=== PATIENT | female | born 1960 | race Two or more races ===

== ENCOUNTER 2025-01-01 00:26 | Inpatient (IN) | payer MEDICARE, MEDICAID ==
[~2025-01-01] VITALS: Ht 157.5 cm; Wt 71.6 kg
[2025-01-01] VITALS (7 sets, daily range): BP systolic 93–116; BP diastolic 52–64; PULSE 88–101; RESP 16–20; TEMP 97–97.8; O2SAT 95–98
[2025-01-01 01:03] LABS: CREATININE 1.25 MG/DL (0.40-0.90); TOTAL CARBON DIOXIDE 28.1 MMOL/L (24-32); eCRCL 37 ML/MIN; eGFR 43 ML/MIN
[2025-01-01] MEDS: ondansetron/PF 4mg/2ml inj IV ONE (01:17)
[2025-01-01] MEDS: fentaNYL/PF 50MCG/1 ML 2ML syringe IV ONE (01:21)
[2025-01-01] MEDS: ketorolac trometh 15mg/ml vial 15 MG/ML ML IV ONE (01:21)
--- NOTE | 2025-01-01 02:28 | Physician Documentation ---
History of Present Illness ~ Chief Complaint: Abdominal Pain Stated Complaint: POSS KIDNEY STONES Time Seen by MD: 02:27 Mode of Arrival: EMS HPI Patient presents to the emergency room with two day history of left flank pain. No prior instances. She does endorse dysuria. Positive fevers. Medication Reconciliation Allergies: Coded Allergies: morphine (Verified Allergy, Severe, 01/01/25) Uncoded Allergies: BUMBLE BEES (Allergy, Severe, 01/01/25) SULFA (Allergy, Unknown, 01/01/25) Review of Systems ROS All review of systems negative except as per HPI Physical Exam Vital Signs: Temperature: 98.5, Source: Oral, Heart Rate: 110, Respiratory Rate: 18, BP: 177/100, Pulse Oximetry: 96, Weight: 63.630 Physical Exam General: Patient is awake, alert, oriented x4 in moderate distress Head: Normocephalic and atraumatic. Eyes: Conjunctival normal. EOMI. PERRL. ENT: Mucous membranes moist. Neck: Supple, trachea is midline. Chest: Clear to auscultation bilaterally without rales, rhonchi, or wheezes. There is no accessory muscle use or retractions. Cardiac: Tachycardic irregular without murmurs, gallops, or rubs. Abd: Soft, nondistended, nontender, with normoactive bowel sounds. No guarding, rebound, or rigidity. Back: Left-sided CVA tenderness Progress Progress Note Of noticed small sac of what appears to be drugs fell out of patient's pocket, confiscated by nurse. Results/Orders Results/Orders Orders - VICENTE THAKKAR MD Straight Cath For Urine Sample (01/01/25 00:36) Ct Abdomen Pelvis (01/01/25 02:30) Culture Blood (01/01/25 02:31) Lacticsepsis (01/01/25 02:31) Diltiazem-Ns 100mg/100ml (Cardizem-Ns 10 (01/01/25 03:25) Cult Urine + [facility] Ct (01/01/25 03:50) Page Hospitalist (01/01/25 03:54) Fill Out Med Reconciliation (01/01/25 03:54) Completed Orders - VICENTE THAKKAR MD Hcg, Ur Ql (01/01/25 00:36) BMP (01/01/25 00:36) Lipase (01/01/25 00:36) CMP (01/01/25 00:36) Ketorolac Trometh 15mg/Ml Vial (Toradol (01/01/25 01:05) Ondansetron Inj. (Zofran 4mg/2ml Vial) (01/01/25 01:05) Fentanyl/Pf (Fentanyl 0.05 Mg/Ml Syringe (01/01/25 01:05) Ceftriaxone 2gm/D5w 50ml Bag (Rocephin 2 (01/01/25 02:25) Acetaminophen 1,000mg/100ml Iv (Ofirmev (01/01/25 02:25) Stat Ekg (01/01/25 ) Ct Abdomen Pelvis (01/01/25 02:30) Procalcitonin (01/01/25 02:31) Normal Saline 1000ml (0.9% Sodium Chlori (01/01/25 03:20) Diltiazem Iv (Cardizem Iv 5mg/Ml Inj.) (01/01/25 03:20) Ua W/Microscopic, Cult If Ind (01/01/25 02:13) Medications Received in ER Medications (Trade) Dose Ordered Sig/Kd Route PRN Reason Start Time Stop Time Status Last Admin Dose Admin (Toradol injection) 15 mg ONCE ONCE IV 01/01/25 01:05 01/01/25 01:06 DC 01/01/25 01:21 15 MG (Zofran 4mg/2ml vial) 4 mg ONCE ONCE IV 01/01/25 01:05 01/01/25 01:06 DC 01/01/25 01:17 4 MG (fentaNYL 0.05 MG/ML syringe) 50 mcg ONCE ONCE IV 01/01/25 01:05 01/01/25 01:06 DC 01/01/25 01:21 50 MCG Ceftriaxone Sodium/Dextrose 50 ml @ 100 mls/hr ONCE ONCE IV 01/01/25 02:25 01/01/25 02:54 DC 01/01/25 02:43 100 MLS/HR Acetaminophen 100 ml @ 400 mls/hr ONCE ONCE IV 01/01/25 02:25 01/01/25 02:39 DC 01/01/25 02:40 400 MLS/HR (0.9% sodium chloride (NS) 1000ml IV soln) 2,000 ml ONCE ONCE IVB 01/01/25 03:20 01/01/25 03:21 DC 01/01/25 03:24 2,000 ML (Cardizem IV 5mg/ ml inj.) 5 mg ONCE ONCE IV 01/01/25 03:20 01/01/25 03:21 DC 01/01/25 03:29 5 MG Diltiazem HCl 100 ml @ 5 mls/hr Q20H IV 01/01/25 03:25 01/01/25 03:29 5 MLS/HR Vital Signs 01/01/25 01/01/25 01/01/25 01/01/25 00:28 01:21 01:21 01:24 Temp 98.5 Pulse 108 Resp 24 21 20 18 B/P (MAP) 146/118 Pulse Ox 97 01/01/25 01/01/25 01/01/25 01/01/25 01:30 02:38 03:29 03:29 Temp 98.5 103.3 Pulse 110 143 134 134 Resp 18 20 B/P (MAP) 177/100 (125) 160/115 (130) 119/68 119/68 Pulse Ox 96 97 O2 Flow Rate 0 Laboratory Tests Test 01/01/25 00:32 01/01/25 01:25 01/01/25 01:58 01/01/25 02:13 CBC Comment Sodium Level 137 Potassium Level 4.0 Chloride Level 103 Carbon Dioxide Level 28.1 Anion Gap 6 L Blood Urea Nitrogen 19 H Creatinine 1.25 H Estimated GFR/1.73 m2 43 BUN/Creatinine Ratio 15.2 Glucose Level 128 H Calcium Level 9.5 Total Bilirubin 0.7 Aspartate Amino Transf (AST/SGOT) 29 Alanine Aminotransferase (ALT/SGPT) 33 Alkaline Phosphatase 96 Total Protein 8.7 H Albumin 3.5 Globulin 5.2 H Albumin/Globulin Ratio 0.7 L Lipase 19 Procalcitonin < 0.05 Chemistry Comments White Blood Count 11.7 H Red Blood Count 4.96 Hemoglobin 14.2 Hematocrit 42.3 Mean Corpuscular Volume 85.2 Mean Corpuscular Hemoglobin 28.7 Mean Corpuscular Hemoglobin Concent 33.7 Red Cell Distribution Width 14.3 Platelet Count 148 Mean Platelet Volume 7.5 Neutrophils (%) (Auto) 86.1 H Lymphocytes (%) (Auto) 9.0 L Monocytes (%) (Auto) 3.4 Eosinophils (%) (Auto) 0.6 Basophils (%) (Auto) 0.9 Neutrophils # (Auto) 10.1 H Lymphocytes # (Auto) 1.1 Monocytes # (Auto) 0.4 Eosinophils # (Auto) 0.1 Basophils # (Auto) 0.1 Urine Specimen Description Cln catch midstream Urine Color Yellow Urine Clarity Cloudy Urine pH 6.0 Urine Specific [place] 1.025 Urine Protein 30 H Urine Glucose (UA) Negative Urine Ketones 15 H Urine Occult Blood Small Urine Nitrite Positive H Urine Bilirubin Negative Urine Urobilinogen 0.2 Urine Leukocyte Esterase Small H Urine RBC None seen Urine WBC Tntc H Urine WBC Clumps Many Urine Squamous Epithelial Cells None seen Urine Bacteria 4+ Urine Culture Indicated Indicated Volume Urine Centrifuged 10 ml Urine HCG, Qualitative Negative Urine Comment EKG/XRAY/CT/US/VASC/MRI EKG : Additional Comment EKG interpreted by myself shows time of 0226, rate 140, atrial fibrillation with rapid ventricular response, normal axis, no ST changes Chest X-Ray : Additional Comments Exam: CT ABDOMEN PELVIS Exam: CT CT ABDOMEN PELVIS History: Concern for kidney stone Comparison Study: None Technique: Multidetector spiral CT of the abdomen was performed from lung bases to pubic symphysis. Imaging was performed without IV contrast. Axial, coronal and sagittal multiplanar reformats were obtained from the axial data set by the technologist. Radiation Dose : 1. Abdomen/Pelvis: CTDIvol 18.33 mGy, DLP 984.98 mGy*cm. Findings: Evaluation of solid organs is limited due to lack of intravenous contrast use. Lung Bases: No acute or significant lung base finding. Moderate bibasilar atelectasis. Normal heart size. No pleural or pericardial effusion. Liver: The liver is normal in size. No focal lesions. Gallbladder and Biliary Tree: Unremarkable Spleen: Unremarkable Pancreas: The pancreas is grossly normal in appearance. Adrenal Glands: Unremarkable Kidneys: Severe left hydroureteronephrosis and perinephric inflammatory change without an identifiable obstructing ureterolith. Nonobstructing left interpolar pelvocaliceal calculus measures 12 mm. No evidence of right nephrolithiasis or hydronephrosis. Bladder: Grossly unremarkable for degree of distention. Bowel: The stomach is grossly normal in appearance. Small bowel and colon are normal in caliber and distribution. The appendix is normal. Ascites: Absent Lymphadenopathy: No mesenteric, retroperitoneal or periportal lymphadenopathy. Abdominal Wall and Mesentery: Unremarkable. Vasculature: The visualized abdominal aorta is normal in size and caliber. Atherosclerotic vascular calcifications. Evaluation of abdominal and pelvic vessels is limited due to lack of intravenous contrast. Pelvic Organs: Unremarkable Musculoskeletal: No aggressive focal bony lesions, acute fractures or dislocation. IMPRESSION: 1. Severe left hydroureteronephrosis and perinephric inflammatory change without an identifiable obstructing ureterolith. This may represent a recently passed calculus. 2. Nonobstructing left interpolar pelvocaliceal calculus measures 12 mm. Radiation optimization: All CT scans at this facility use at least one of these dose optimization techniques: automated exposure control mA and/or kV adjustment per patient size (includes targeted exams where dose is matched to clinical indication) or iterative reconstruction. Medical Decision Making Findings Patient presents to the emergency room with flank pain dysuria F fevers and tachycardia. Differentials include but are not limited to sepsis, pyelonephritis, infected kidney stone, urinary tract infection, aortic pathology therefore emergent labs and imaging indicated. Labs significant for elevated white blood cell count as well as urinary tract infection. Given tachycardia along with fevers she is septic. 30 milliliters/kilogram of IV fluids has been initiated as well as IV antibiotics. She will require admission. Blood pressures are reassuring. Patient also found to be in new onset atrial fibrillation. Diltiazem drip initiated. He denies any chest pain. Diff Dx GI Bleed:Consideration: Include: Bleeding diathesis Diff Dx Pain:Considerations: Include: -Threatened Diff Dx N/V/D:Considerations: Include: DKA Diff Dx Rectal:Considerations: Include: Foreign body Departure Admitted to Inpatient Unit: yes, to hospitalist Impression: Primary Impression: Acute urinary tract infection Additional Impressions: Pyelonephritis Sepsis Referrals: NO PRIMARY CARE PROVIDER (PCP) Signature Scribe Signature: No scribe Attestation: The note accurately reflects work and decisions made by me.Vicente Thakkar MD 01/01/25 04:00 VICENTE THAKKAR MD Jan 01, 2025 02:28
--- NOTE | 2025-01-01 02:29 | ELECTROCARDIOGRAPH REPORT ---
[facility] Test Date: 2025-01-01 Test Time: 02:26:24 Pat Name: NAIMA RODRIGUEZ Department: [facility]-ER Patient ID: [id number] Room: [place] [id number] Gender: F Psychology Assistant: : [id number] Requested By: CELINA SLADE Order Number: [id number] Reading MD: Dr. Timothy Bender Measurements Intervals [place] Rate: 140 P: 0 MD: 0 QRS: 63 QRSD: 101 T: 53 QT: 310 QTc: 473 Interpretive Statements Atrial flutter/fibrillation Low voltage, precordial leads Anteroseptal infarct, old Artifact in lead(s) I,II,III,aVR,aVL,aVF,V1,V2 Electronically Signed On 01-01-2025 7:40:[address] Timothy Bender Please click the below link to view image of tracing.
[2025-01-01] MEDS: acetaminophen 1,000mg/100ml IV 100 ML IV ONE (02:40)
[2025-01-01] MEDS: CefTRIAXone 2gm/D5W 50ml BAG 50 ML IV ONE (02:43)
[2025-01-01 02:51] LABS: URINE HCG NEGATIVE (NEG)
[2025-01-01] MEDS: normal saline 1000ML IV soln IVB ONE (03:24)
[2025-01-01] MEDS: diltiazem 5mg/ml 5ml inj. IV ONE (03:29)
[2025-01-01] MEDS: diltiazem-NS 100mg/100ml 100 ML IV SCH (03:29)
[2025-01-01 03:31] LABS: RED CELL DISTRIBUTION WIDTH 14.3 % (11.5-14.5)
[2025-01-01 03:33] LABS: MEAN PLATELET VOLUME 7.5 FL (7.4-10.4)
--- NOTE | 2025-01-01 03:41 | RADIOLOGY REPORT ---
Exam: CT CT ABDOMEN PELVIS History: Concern for kidney stone Comparison Study: None Technique: Multidetector spiral CT of the abdomen was performed from lung bases to pubic symphysis. Imaging was performed without IV contrast. Axial, coronal and sagittal multiplanar reformats were obtained from the axial data set by the technologist. Radiation Dose : 1. Abdomen/Pelvis: CTDIvol 18.33 mGy, DLP 984.98 mGy*cm. Findings: Evaluation of solid organs is limited due to lack of intravenous contrast use. Lung Bases: No acute or significant lung base finding. Moderate bibasilar atelectasis. Normal heart size. No pleural or pericardial effusion. Liver: The liver is normal in size. No focal lesions. Gallbladder and Biliary Tree: Unremarkable Spleen: Unremarkable Pancreas: The pancreas is grossly normal in appearance. Adrenal Glands: Unremarkable Kidneys: Severe left hydroureteronephrosis and perinephric inflammatory change without an identifiable obstructing ureterolith. Nonobstructing left interpolar pelvocaliceal calculus measures 12 mm. No evidence of right nephrolithiasis or hydronephrosis. Bladder: Grossly unremarkable for degree of distention. Bowel: The stomach is grossly normal in appearance. Small bowel and colon are normal in caliber and distribution. The appendix is normal. Ascites: Absent Lymphadenopathy: No mesenteric, retroperitoneal or periportal lymphadenopathy. Abdominal Wall and Mesentery: Unremarkable. Vasculature: The visualized abdominal aorta is normal in size and caliber. Atherosclerotic vascular calcifications. Evaluation of abdominal and pelvic vessels is limited due to lack of intravenous contrast. Pelvic Organs: Unremarkable Musculoskeletal: No aggressive focal bony lesions, acute fractures or dislocation. IMPRESSION: 1. Severe left hydroureteronephrosis and perinephric inflammatory change without an identifiable obstructing ureterolith. This may represent a recently passed calculus. 2. Nonobstructing left interpolar pelvocaliceal calculus measures 12 mm. Radiation optimization: All CT scans at this facility use at least one of these dose optimization techniques: automated exposure control mA and/or kV adjustment per patient size (includes targeted exams where dose is matched to clinical indication) or iterative reconstruction.
[2025-01-01 03:42] LABS: LEUKOCYTE ESTERASE ,URINE SMALL (Neg); NITRITES, URINE POSITIVE (Neg); OCCULT BLOOD,URINE SMALL (Neg)
[2025-01-01 03:43] LABS: UA COLLECTION TYPE CLN CATCH MIDSTREAM
[2025-01-01 03:50] LABS: SQUAMOUS EPITHELIAL CELL,UR NONE SEEN /LPF (FEW); WBC CLUMPS,URINE MANY /HPF (NEGATIVE)
[2025-01-01] MEDS ORDERED: magnesium Cl slow-release 64mg tablet PO PRN (04:10)
[2025-01-01] MEDS ORDERED: potassium Cl 20 mEq SR tablet PO PRN (04:10)
[2025-01-01] MEDS: PERFLUTREN PROTEIN-A MICROSPHR (Optison) 0.22 MG/ML 3ML VIAL IV ONE (04:10)
[2025-01-01] MEDS ORDERED: potassium Cl 40MEQ/1/2NS 520ml 520 ML IV PRN (04:10)
[2025-01-01] MEDS ORDERED: ondansetron/PF 4mg/2ml inj IV PRN (04:10)
[2025-01-01] MEDS ORDERED: magnesium sulf-water 4G/100mL 100 ML IV PRN (04:10)
[2025-01-01] MEDS ORDERED: magnesium sulf-water 2g/50mL 50 ML IV PRN (04:10)
--- NOTE | 2025-01-01 04:53 | HISTORY AND PHYSICAL-Residence ---
History & Physical Providers to CC Resident Creating Document: FARTUN TAN RES CC: ALEX WOLF MD ~ History of Present Illness Primary Medical Doctor: in [place], [place] Reason for Admit\Complaint: Left lower quadrant abdominal pain for a week History of Present Illness 64 year old female past medical history of nephrolithiasis, lupus, presented to the ER with chief complaints of left flank pain the has been ongoing for the past one week. Patient was initially prescribed Keflex for possible UTI and even with that she was having severe left flank pain associated with dysuria, hematuria pyuria. She is also having urinary incontinence. Pain is associated with nausea and vomitings. She does have intermittent low-grade fevers. Denies any recent urological intervention of previous urological intervention. Of note as per the sign-out received from the ER the, a purse with some pills were confiscated from the patient Allergies: Coded Allergies: morphine (Verified Allergy, Severe, 01/01/25) Uncoded Allergies: BUMBLE BEES (Allergy, Severe, 01/01/25) SULFA (Allergy, Unknown, 01/01/25) Past Medical History Past Medical History History of nephrolithiasis Lupus diagnosed many years ago, not on any treatment, uses steroids for any breakout Heart murmur Uses Ventolin for shortness of breaths Uterine prolapse Past Surgical History Surgical History Comment Cataract surgery Past Social History Social History Comment Ex-smoker, quitted seven months ago before that five pack year history of smoking Denies alcohol use Denies illicit drug use Denies marijuana use Independent for ADLs lives in [place] ROS ROS ROS Constitutional: Positive for fever, no dizziness, weakness. decreased appetite HEENT: No blurring of the vision, No sore throat, epistaxis, tinnitus Cardiovascular: No chest pain/discomfort, palpitations, syncope. No pedal edema Respiratory: No sob, cough,, hemoptysis Gastrointestinal: Positive for abdominal pain, nausea, vomiting. No diarrhea, constipation, melena. Genitourinary: Positive for urinary incontinence, hematuria, dysuria, flank pain Musculoskeletal: No arthralgia, myalgia Endocrine: No, polydipsia, polyuria. No heat or cold intolerance Neurologic: No headache, vertigo. No weakness, numbness or tingling of extremities Psychiatric: No hallucinations/delusions, no anhedonia, no suicidal ideation\ Hematologic: No bleeding or bruises Reviewed in full. All negative except for pertinent positives in HPI Exam Vitals: Vital Signs Date Time Temp Pulse Resp B/P (MAP) Pulse Ox O2 Delivery O2 Flow Rate FiO2 01/01/25 04:00 100.2 121 35 98 01/01/25 03:29 119/68 01/01/25 02:38 0 General: General: Pleasant elderly female, edentulous, AAO x4, not in apparent distress but appears very fidgety Head: Normocephalic with an atraumatic Eyes: Pupils- 3mm, reacting to light, conjunctiva- anicteric Nose and throat: No polyps, septum- normal, no mucosal ulcers Neck: Supple, no lymphadenopathy, no carotid bruit Respiratory: No use of accessory muscles of respiration, bilateral decreased breath sounds with occasional wheeze present Cardiac: S1-S2 heard, rythm regular, ESM in the aortic area and PSM in the mitral area with radiation over precordium Abdomen: Mildly distended, tenderness over the left flank, no organomegaly, bowel sounds- heard Extremities: no clubbing, no pedal edema, no deformities, peripheral pulses- 2+, with a right morocho 2-3 mm subcutaneous nodules which are mildly tender present Skin: warm and dry, no rash, no purpura Neuro: No focal deficit, gross cranial nerve exam- normal Gynecologic examination deferred Diagnostic Data Last Recorded Lab Results: 01/01/25 0158 01/01/25 0032 Advance Care Planning Advanced Care plannin - 30 Minutes (Code status is discussed with cam she opted for full code) Additional Plan 64 year old female past medical history of nephrolithiasis, lupus, presented to the ER with chief complaints of left flank pain the has been ongoing for the past one week. ER course- in the ER initial EKG was sinus however later patient developed AFib with RVR received Cardizem 5 mg IV push and started on Cardizem at 5 mg/hour. She is found to be septic with a possible source UTI. Urinalysis- positive for nitrite and leukocyte esterase with many WBC and bacteria. Pending urine cultures. She was empirically started on IV Rocephin. CT abdomen and pelvis showed severe left hydroureteronephrosis and perinephric inflammatory change without an identifiable obstructing nephrolith possibly representing recently passed calculus. Nonobstructing left pelvicaliceal calculus measuring 12 mm CBC-WBC 11.7, mild leukocytosis with neutrophilic shift with normal procalcitonin Sepsis Suspect secondary to left pyelonephritis -received 2 L normal saline bolus in the ER -current blood pressures in the range of 90-60 with map 63 -give another fluid bolus of 1 L normal saline -continue normal saline at 100 cc/hour. Monitor blood pressure to maintain map above 65 -follow up on urine cultures, blood cultures -empirically started on IV meropenem 1 gm q12, as patient stated she had some resistant uti in the past Left hydroureteronephrosis Left Nephrolithiasis -CT suggesting stone might have been past. -We will consult Urology regarding recommendations for stenting as patient is also having sepsis and pyelonephritis -keep patient NPO until urology consultation is done. Dr. Block consulted, appreciate recs RUBEN -baseline creatinine unknown -Current creatinine 1.25 -likely suspect RUBEN secondary to sepsis -continue normal saline at 100 cc/hour -follow up on urine lytes and monitor input output chart New onset AFib with RVR Chads Vasc-1 -continue Cardizem at 5 mg/hour current heart rates and dose to 110s, if blood pressure is going down reduced Cardizem dose to 2.5 mg/hour -follow up on echocardiogram to look for any valvular lesions like mitral stenosis -follow up on TSH -if there is no mitral stenosis on-chads Vasc score is one patient might not need anticoagulation Lupus -stated long-term history of lupus currently not on any medications at present there is no active flare of lupus clinically however urinalysis did show some proteinuria. We will do urine protein creatinine ratio, and monitor Heart murmur -follow up on 2D echo to look for possible MR/ Uterine prolapse -currently reducible at this time, consult Gynecology if needed Methamphetamine abuse -UDS is positive for meth and fentanyl. patient did have a dose of fentanyl for pain relief here in the ER and UDS was obtained after that -substance abuse navigator and clinical social worker consulted for meth abuse Code Status: Full code Line/tube: PIV DVT prophylaxis: Lovenox Nutrition: NPO PT: Yes Prognosis: Guarded Disposition: Continue care in PCU, pending urology consult Fartun Tan MD PGY-3 resident Plan reviewedPlan reviewed with bedside team. Patient seen through remote audiovisual assessment through HIPAA compliant setup. All labs, flowsheets, and images reviewed Cumulative nonprocedural care time spent in directed patient care = 30 min with bedside team. Patient seen through remote audiovisual assessment through HIPAA compliant setup. All labs, flowsheets, and images reviewed Cumulative nonprocedural care time spent in directed patient care = 60 min Date of Service: Jan 01, 2025 Billing Provider: ALEX WOLF MD, HARIVARSHA, [facility] Jan 01, 2025 04:53 ALEX WOLF MD Jan 01, 2025 07:18
[2025-01-01 05:00] LABS: URINE AMPHETAMINE SCREEN POSITIVE (Neg); URINE BARBITUATE SCREEN NEGATIVE (Neg); URINE BENZODIAZEPINES SCREEN NEGATIVE (Neg); URINE CANNABINOID SCREEN NEGATIVE (Neg); URINE COCAINE SCREEN NEGATIVE (Neg); URINE METHADONE SCREEN NEGATIVE (Neg); URINE OPIATE SCREEN NEGATIVE (Neg); URINE PHENCYCLIDINE SCREEN NEGATIVE (Neg)
[2025-01-01] MEDS: normal saline 1000ml 1,000 ML IV ONE (05:35)
[2025-01-01] MEDS: K and/or MAG REPLACEMENT MC SCH (08:00)
--- NOTE | 2025-01-01 09:02 | RADIOLOGY REPORT ---
CHEST RADIOGRAPH Indication: FEVER Technique: Single frontal view of the chest was obtained Comparison: None FINDINGS: Lines and Tubes: None Lungs: No focal consolidation. Pleura: No effusion. No pneumothorax. Cardiomediastinal contours: Unremarkable Bones: No acute osseous abnormality. IMPRESSION: No acute cardiopulmonary disease.
[2025-01-01] MEDS: normal saline 1000ml 1,000 ML IV SCH (09:14)
[2025-01-01] MEDS: MEROPENEM 1GM/NACL 50ML IVPB 50 ML IV SCH (09:17)
[2025-01-01] MEDS: docusate sod 100mg capsule PO SCH (09:17)
[2025-01-01] MEDS: enoxaparin 40mg/0.4ml syringe SUBCUT SCH (09:18)
[2025-01-01] MEDS: phenazopyridine 100mg tablet PO SCH (14:27)
--- NOTE | 2025-01-01 16:42 | CARDIOLOGY REPORT ---
APPROVED REPORT EXAM: Comprehensive 2D, Doppler, and color-flow Echocardiogram. 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 3.16 cm IVC 16.05 mm FS (%) 38.1 % SV 37.2 ml CO 3.3 L/min M-Mode Dimensions Left Atrium(MM) 3.16 (2.5-4.0cm) Aortic Root 2.95 (2.2-3.7cm) Aortic Cusp Exc 1.54 (1.5-2.0cm) MV EPSS 0.5 (<0.5cm) Aortic Valve AoV Peak Trey. 145.8 cm/s AoV VTI 27.2 cm AO Peak GR. 8.5 mmHg AO Mean GR. 5 mmHg LVOT VTI 19.52 cm LVOT Peak Trey. 102.7 cm/s LOPEZ(VTI)/BSA 2.25 cm2/m2 LOPEZ (VTI) 2.25 cm2 AV DI 0.72 % Mitral Valve MV E Velocity 87.8 cm/s MV Peak Gr. 9 mmHg MV DECEL TIME 196 ms MV A Velocity 112.5 cm/s MV PHT 44 ms E/A Ratio 0.8 MVA (PHT) 5.00 cm2 MV VMax 150.6 cm/s TDI Lateral E' P. V 13.66 cm/s E/Lateral E' 6.4 Pulmonary Valve PAEDP 12.38 mmHg Tricuspid Valve TR P. Velocity 241 cm/s RAP ESTIMATE 10 mmHg TR Peak Gr. 23 mmHg RVSP 33 mmHg LEFT VENTRICLE Normal LV size and wall thickness. Overall systolic function is normal. Intra- cavitary gradient is present with resting velocity of 14 mmHg increasing to 21 mmHg with valsalva. Overall LVEF is 70-75%. RIGHT VENTRICLE RV is normal size and function. Estimated PA systolic pressure of 33 mm of mercury. ATRIA The left atrium size is normal. AORTIC VALVE Trileaflet AV appears mildly sclerotic without stenosis. No insufficiency. MITRAL VALVE Mitral valve leaflets are mildly thickened with mild annular calcification. No stenosis. Trace regurgitation. TRICUSPID VALVE The tricuspid valve is normal in structure with mild regurgitation. PULMONIC VALVE The pulmonary valve is normal in structure with trace insufficiency. GREAT VESSELS The aortic root is normal in size. The ascending aorta is normal in size. The IVC is normal in size and collapses >50% with inspiration. PERICARDIUM Normal pericardium. No effusion. Other Information Study Quality: Adequate Conclusion Overall LVEF is 70-75%. Normal LV size and wall thickness. Overall systolic function is normal. Intra-cavitary gradient is present with resting velocity of 14 mmHg increasing to 21 mmHg with valsalva. RV is normal size and function. Estimated PA systolic pressure of 33 mm of mercury. Trileaflet AV appears mildly sclerotic without stenosis. No insufficiency. Mitral valve leaflets are mildly thickened with mild annular calcification. No stenosis. Trace regurgitation. The tricuspid valve is normal in structure with mild regurgitation. The pulmonary valve is normal in structure with trace insufficiency. Normal pericardium. No effusion.
--- NOTE | 2025-01-01 20:30 | PROGRESS NOTE ---
Daily Progress Note Providers to CC ~ Antibiotic Timeout Antibiotic Ordered?: Yes Subjective The patient has a little bit of an odd affect I did inform the patient about the CT findings and the fact that is I did speak to the urologist Dr. Block. Objective Vital Signs Date Time Temp Pulse Resp B/P (MAP) Pulse Ox O2 Delivery O2 Flow Rate FiO2 01/01/25 15:00 97.0 88 18 93/61 (72) 98 Room Air 01/01/25 11:00 2.0 Result Diagram: 01/01/25 0158 01/01/25 0032 Gen. No acute distress alert and oriented 4 Lungs clear to ascultation bilaterally, no wheezes rales or rhonchi appreciated Heart irregular rhythm no murmurs rubs or clicks noted Abdomen soft nontender bowel sounds are normoactive Lower extremities no clubbing cyanosis, nor edema appreciated bilaterally Problem\Assessment\Plan Problems/Diagnosis: (1) Sepsis # sepsis # pyelonephritis # bladder pain possible spasms Pyridium IV Rocephin Urine culture/ blood cultures obtained #Left hydroureteronephrosis Left Nephrolithiasis -CT suggesting stone might have been past. -spoke with urologist Dr. Block who will evaluate the patient #Kidney injury possibly acute -baseline creatinine unknown -Current creatinine 1.25 -likely suspect RUBEN secondary to sepsis -continue normal saline at 100 cc/hour -follow up on urine lytes and monitor input output chart #New onset AFib with RVR Chads Vasc-1 -continue Cardizem at 5 mg/hour current heart rates and dose to 110s, if blood pressure is going down reduced Cardizem dose to 2.5 mg/hour -follow up on echocardiogram to look for any valvular lesions like mitral stenosis -follow up on TSH -if there is no mitral stenosis on-chads Vasc score is one patient might not need anticoagulation #Lupus -stated long-term history of lupus currently not on any medications at present there is no active flare of lupus clinically however urinalysis did show some proteinuria. We will do urine protein creatinine ratio, and monitor #Uterine prolapse -currently reducible at this time, consult Gynecology if needed #Methamphetamine abuse -UDS is positive for meth and fentanyl. patient did have a dose of fentanyl for pain relief here in the ER and UDS was obtained after that -substance abuse navigator and social sciences professor consulted for meth abuse Code Status: Full code Line/tube: PIV DVT prophylaxis: Lovenox Nutrition: NPO PT: Yes Prognosis: Guarded Disposition: Continue care in PCU, pending urology consult Date of Service: Jan 01, 2025 Billing Provider: KINSEY MOYA DO Common Visit Codes: NOT BILLABLE (After midnight to be billed by roof shingler) KINSEY MOYA DO Jan 01, 2025 20:30
[2025-01-01] MEDS ORDERED: CefTRIAXone 2gm/D5W 50ml BAG 50 ML IV SCH (21:00)
[2025-01-01] MEDS: diltiazem 30mg tablet PO ONE (22:37)
[2025-01-02] VITALS (7 sets, daily range): BP systolic 90–110; BP diastolic 46–57; PULSE 76–82; RESP 13–18; TEMP 97.1–97.8; O2SAT 92–97
[2025-01-02 06:26] LABS: MEAN PLATELET VOLUME 8.4 FL (7.4-10.4); RED CELL DISTRIBUTION WIDTH 14.8 % (11.5-14.5)
[2025-01-02 06:42] LABS: CREATININE 0.79 MG/DL (0.40-0.90); TOTAL CARBON DIOXIDE 21.7 MMOL/L (24-32); eCRCL 58 ML/MIN; eGFR 74 ML/MIN
[2025-01-02 07:09] LABS: BANDS% (MANUAL) 12.0 % (0-10); LYMPHOCYTES % (MANUAL) 6.0 % (21-51); MONOCYTES % (MANUAL) 2.0 % (2-12); NEUTROPHILS % (MANUAL) 80.0 % (42-75); PLATELET ESTIMATE NORMAL
[2025-01-02] MEDS: diltiazem CD 180mg cap (once-daily) PO SCH (08:06)
[2025-01-02] MEDS: CefTRIAXone 2gm/D5W 50ml BAG 50 ML IV SCH (08:06)
[2025-01-02] MEDS: HYDROcodone/acetaminophen 5mg/325mg tablet PO PRN (08:09)
--- NOTE | 2025-01-02 18:28 | CONSULTATION ---
DATE OF CONSULTATION: 01/01/2025 DICTATING PHYSICIAN: Luke Block MD HISTORY OF PRESENT ILLNESS: A 64-year-old female presented herself to the Emergency Room with flank pain. She has a history of nephrolithiasis treated by her doctor up in [place]. She presented with left flank pain ongoing for the last week. She was given Keflex for possible UTI, but came in when she started having more pain and dysuria. She has not passed a recent stone that she knows of. She has some nausea and vomiting with low-grade fever. I was asked to consult. PAST SURGICAL HISTORY: Cataract and nephrolithiasis, kidney stone surgery of unclear type. PAST MEDICAL HISTORY: Nephrolithiasis, lupus, cardiac murmur, uterine prolapse, Ventolin for shortness of breath. ALLERGIES: PATIENT IS ALLERGIC TO MORPHINE. HOME MEDICATIONS: None listed. SOCIAL HISTORY: She is an ex-smoker, quit 7 months ago. She denies alcohol use or illicit drug use or marijuana use. She lives in [place]. REVIEW OF SYSTEMS: A 10-point review of systems is negative except for HPI. PHYSICAL EXAMINATION: VITAL SIGNS: Blood pressure is 119/68. Respirations 30. Pulse is 121. Temperature 100.2. GENERAL: In general, she is nontoxic appearing. LABORATORY DATA: White count is 11.7, hematocrit is 42%, BUN and creatinine are 19 and 1.2. Urine is revealing for too numerous to count white cells per high-powered field. IMAGING: CT scan is reviewed in detail and shows mild left-sided hydroureteronephrosis with a 1 cm stone large in the mid pole of her kidney, which is nonobstructing. There are no ureteral stones or evidence of obstruction. ASSESSMENT: * UTI with possible nonobstructive pyelonephritis as well. There is no evidence of obstruction currently. * Left renal calculus, nonobstructing. This will need to be treated electively in the future. PLAN: Treatment for nonobstructing pyelonephritis with appropriate antibiotics. Okay to discharge home when clinically stable. She will follow up with her previously established urologist in [place] for treatment of her stone as she has been informed that this stone is too big to pass and will require treatment. Luke Block MD TID: [id number] RECEIPT: [id number] GABRIELA/CHASE
--- NOTE | 2025-01-02 19:41 | PROGRESS NOTE ---
Daily Progress Note Providers to CC ~ Antibiotic Timeout Antibiotic Ordered?: Yes Subjective This is a white blood cell count was evaluated by Dr. Block yesterday to the nonobstructing left interpolar pelvocaliceal calculus measures 12 mm is too large to pass the patient we will need a procedure in the outpatient setting however no urgent procedure is warranted Objective Vital Signs Date Time Temp Pulse Resp B/P (MAP) Pulse Ox O2 Delivery O2 Flow Rate FiO2 01/02/25 18:54 18 01/02/25 15:00 97.2 78 110/57 (74) 92 Room Air 01/01/25 11:00 2.0 Result Diagram: 01/02/2553601/02/25 05 Gen. No acute distress alert and oriented 4 Lungs clear to ascultation bilaterally, no wheezes rales or rhonchi appreciated Heart irregular rhythm no murmurs rubs or clicks noted Abdomen soft nontender bowel sounds are normoactive Lower extremities no clubbing cyanosis, nor edema appreciated bilaterally Problem\Assessment\Plan Problems/Diagnosis: (1) Sepsis # sepsis # pyelonephritis # bladder pain possible spasms Pyridium IV Rocephin Urine culture/ blood cultures are thus far negative #Left hydroureteronephrosis Left Nephrolithiasis -CT suggesting stone might have been past. -evaluated urologist Dr. Block who assessed that is the patient passed a kidney stone however the interpolar pelvocaliceal calculus measures 12 mm is too large and will require a intervention in the outpatient setting and recommended following up with her urologist in [place]. # acute kidney injury likely secondary to vasomotor nephropathy passed kidney stone -baseline creatinine unknown -Current creatinine 1.25 -likely suspect RUBEN secondary to sepsis -continue normal saline at 100 cc/hour -01/02 resolved #New onset AFib with RVR Chads Vasc-1 -01/02 Cardizem drip has been discontinued the patient is on Cardizem CD 180 mg daily -follow up on echocardiogram to look for any valvular lesions like mitral stenosis -follow up on TSH - there is no mitral stenosis-chads Vasc score is one patient does not need anticoagulation #Lupus -stated long-term history of lupus currently not on any medications at present there is no active flare of lupus clinically however urinalysis did show some proteinuria. We will do urine protein creatinine ratio, and monitor #Uterine prolapse -currently reducible at this time, consult Gynecology if needed #Methamphetamine abuse -UDS is positive for meth and fentanyl. patient did have a dose of fentanyl for pain relief here in the ER and UDS was obtained after that -substance abuse navigator and social services coordinator consulted for meth abuse Code Status: Full code Line/tube: PIV DVT prophylaxis: Lovenox Nutrition: NPO PT: Yes Disposition: Once white blood cell count downtrended the patient is likely to be able to be discharged Prognosis: Guarded Disposition: Continue care in PCU, pending urology consult Date of Service: Jan 02, 2025 Billing Provider: KINSEY MOYA DO Common Visit Codes: [id number] INP/OBS CARE(HIGH) KINSEY MOYA DO Jan 02, 2025 19:41
[2025-01-02] MEDS: HYDROcodone/acetaminophen 10/325mg tab PO PRN (23:34)
[2025-01-03 02:00] VITALS: BP 111/56; PULSE 76; RESP 18; TEMP 98.2; O2SAT 94
[2025-01-03 06:15] LABS: MEAN PLATELET VOLUME 7.6 FL (7.4-10.4); RED CELL DISTRIBUTION WIDTH 14.3 % (11.5-14.5)
[2025-01-03 06:52] LABS: CREATININE 0.65 MG/DL (0.40-0.90); TOTAL CARBON DIOXIDE 23.1 MMOL/L (24-32); eCRCL 71 ML/MIN; eGFR > 90 ML/MIN
[2025-01-03] MEDS: potassium Cl 20 mEq SR tablet PO PRN (07:52)
[2025-01-03 08:00] VITALS: RESP 20; O2SAT 97
[2025-01-03 08:07] VITALS: BP 119/66; PULSE 80; RESP 20; TEMP 98.2; O2SAT 97
[2025-01-03 11:52] VITALS: BP 126/69; PULSE 88; RESP 12; TEMP 98.7; O2SAT 97
[2025-01-03] MEDS ORDERED: PHEN-888 PO (11:58)
[2025-01-03] MEDS ORDERED: LEVO-65 PO (11:58)
[2025-01-03] MEDS ORDERED: DILT180C66 PO (11:58)
[2025-01-03] MEDS ORDERED: HYDR-3972 PO (11:58)
--- NOTE | 2025-01-03 19:20 | DISCHARGE SUMMARY ---
Discharge Summary Providers to CC ~ Discharge Summary Admission Diagnosis: SEPSIS, A-FIB WITH RVR Hospital Course DATE OF ADMISSION: 01/01/2025 DATE OF DISCHARGE: 01/03/2025 Discharge Diagnosis\\Comment: Sepsis Pyelonephritis Bladder spasms Left hydroureteronephrosis Acute kidney injury likely secondary to vasomotor nephropathy/passed kidney stone New onset AFib with RVR Lupus Methamphetamine use disorder Operations\\Procedures: None Consultants: Dr. Luke Block urologist Complications: None Condition on DC: Stable New Medications: Levofloxacin (Levofloxacin) 500 Mg Tablet 500 MG PO DAILY, #7 TAB Diltiazem Hcl CD* (Cardizem CD*) 180 Mg Cap.sr.24h 180 MG PO DAILY, #30 CAP.SR Hydrocodone Bit/Acetaminophen (Hydrocodon-Acetaminophn 10-325 tablet) 10mg- 325mg Tablet 1 TAB PO Q8H PRN for SEVERE PAIN 7-10, #10 TAB Phenazopyridine Hcl* (Phenazopyridine Hcl*) 200 Mg Tablet 1 TAB PO Q8H PRN for bladder spasms for 3 Days, #9 TAB after food Discharge Summary: The patient was admitted by resident physician FARTUN Quintana MD, under the supervision of ALEX Alaniz MD with the following HPI:"64 year old female past medical history of nephrolithiasis, lupus, presented to the ER with chief complaints of left flank pain the has been ongoing for the past one week. Patient was initially prescribed Keflex for possible UTI and even with that she was having severe left flank pain associated with dysuria, hematuria pyuria. She is also having urinary incontinence. Pain is associated with nausea and vomitings. She does have intermittent low-grade fevers. Denies any recent urological intervention of previous urological intervention. Of note as per the sign-out received from the ER the, a purse with some pills were confiscated from the patient." CT scan of the abdomen and pelvis was obtained with the following results: "1. Severe left hydroureteronephrosis and perinephric inflammatory change without an identifiable obstructing ureterolith. This may represent a recently passed calculus. 2. Nonobstructing left interpolar pelvocaliceal calculus measures [address] Luke Block urologist evaluated the patient with the following recommendations:"reatment for nonobstructing pyelonephritis with appropriate antibiotics. Okay to discharge home when clinically stable. She will follow up with her previously established urologist in [place] for treatment of her stone as she has been informed that this stone is too big to pass and will require treatment" Informed the patient has Dr. Block's recommendations the patient is aware and will follow up with her urologist in [place] The patient's [place] blood [place] [address] [place] [address] and then downtrend on day discharge was [address]- the patient initially was septic however this resolved the patient was treated with IV Rocephin during hospitalization was discharged with levofloxacin 500 mg daily for seven days. Recommended the patient is of obtaining [id number] probiotic as well to avoid antibiotic induced C difficile enterocolitis. The patient has some bladder spasms and I prescribed Pyridium for the patient w monserrat helped and the patient received a prescription for discharge on Pyridium the patient has requested some pain medication for discharge I told her I could only discharge her with 10 tablets for which the patient is appreciative and the patient is discharged with Trail 10/325 one tablet q.6 hours PRN severe pain 10 tablets were prescribed. The patient was initially in AFib RVR on admission was on a Cardizem drip heart rate peaked at in the 140s and then downtrended and the patient remained rate controlled the rest of hospitalization on Cardizem CD 180 mg daily and the patient is discharged with a prescription for Cardizem CD. Patient was admitted with a mild RUBEN with a serum creatinine of 1.25 on admission and a GFR of 43 this improved and on the day of discharge the patient's GFR was greater than 90. Gen. No acute distress alert and oriented 4 Lungs clear to ascultation bilaterally, no wheezes rales or rhonchi appreciated Heart normal sinus rhythm no murmurs rubs or clicks noted Abdomen soft nontender bowel sounds are normoactive Lower extremities no clubbing cyanosis, nor edema appreciated bilaterally The patient felt ready to be discharged and was medically cleared to be discharged on 01/03/2025 The patient was seen and evaluated on day of discharge. Time spent on discharge 40 minutes *Problems/Diagnosis: (1) Sepsis Status: Acute Total Time Spent on D/C: > 30 Minutes Date of Service: Jan 03, 2025 Billing Provider: KINSEY MOYA DO Common Visit Codes: [id number]/OBS DISCH DAY >30min KINSEY MOYA DO Jan 03, 2025 19:12
== END 2025-01-03 14:15 | disposition home or self-care (01) | DRG 871 ==
LOC: ER 00:27 → ED HOLD 04:12 → EDBEDREQ 05:17 → PCU 3S 05:20
PROVIDERS: ADMIT Internal Medicine Critical Care Medicine; ATTEND Family Medicine
DX: A41.9 Sepsis, unspecified organism (principal); N17.0 Acute kidney failure with tubular necrosis; N13.6 Pyonephrosis; R32 Unspecified urinary incontinence; I48.91 Unspecified atrial fibrillation; R01.1 Cardiac murmur, unspecified; N81.4 Uterovaginal prolapse, unspecified; F15.10 Other stimulant abuse, uncomplicated; M32.9 Systemic lupus erythematosus, unspecified; N32.89 Other specified disorders of bladder; Z79.899 Other long term (current) drug therapy; Z88.5 Allergy status to narcotic agent; Z88.8 Allergy status to other drugs, medicaments and biological substances; Z87.442 Personal history of urinary calculi; Z87.891 Personal history of nicotine dependence
CPT/HCPCS: 36415; 71045; 74176; 80053; 80305; 81001; 81025; 83036; 83605; 83690; 83735; 83930; 84145; 84443; 85007; 85025; 87040; 87081; 87088; 93005; 93306; 96365; 96367; 96368; 96375; 97116; 97161; 97530; 99285; G0378; J0131; J0696; J1650; J1885; J2185; J2405; J3010; J3490; J7030